=== PATIENT | female | born 1970 | race Caucasian/White ===

== ENCOUNTER 2019-06-10 06:08 | Day surgery (SDC) | payer OTHER ==
[~2019-06-10 06:08] MED LIST: MULTIPLE VITAM1 EACH PO; RELAFEN PO
[2019-06-10] MEDS ORDERED: PERCOCET 5-3251 EACH PO (11:12)
[2019-06-10] MEDS ORDERED: POLY119PG PO (11:12)
[2019-06-10] MEDS ORDERED: SURFAK240 MG PO (11:13)
[2019-06-10] MEDS ORDERED: PEPCID20 MG PO (11:13)
== END 2019-06-10 14:55 | disposition home or self-care (01) ==
LOC: CIR.AMB 06:08
DX: K80.10 Calculus of gallbladder with chronic cholecystitis without obstruction (principal); K43.0 Incisional hernia with obstruction, without gangrene; K42.0 Umbilical hernia with obstruction, without gangrene